=== PATIENT | male | born 1950 | race Caucasian/White ===

== ENCOUNTER 2017-10-28 12:43 | Observation (INO) | payer BC, OTHER ==
[2017-10-28] VITALS (10 sets, daily range): BP systolic 118–168; BP diastolic 57–74; PULSE 60–75; RESP 16–19; TEMP 98.1–98.5; O2SAT 95–100
[~2017-10-28 12:43] MED LIST: ACTO15TA6 PO; ATOR20TA42 PO; GLUCTAB PO; LISI5 PO; NORC7.5T PO; ST JTAB PO; TAMS5CAP PO
[2017-10-28] MEDS ORDERED: ASPIRIN 81 MG CHEW TAB PO ONE (13:15)
[2017-10-28] MEDS ORDERED: ASPI-516 CHEW (13:20)
[2017-10-28] MEDS ORDERED: LISI-519 PO (13:20)
[2017-10-28] MEDS ORDERED: LIPI20TA PO (13:20)
[2017-10-28] MEDS ORDERED: GABA600T PO (13:20)
[2017-10-28] MEDS ORDERED: METF1000 PO (13:20)
[2017-10-28] MEDS ORDERED: DAPA1TAB PO (13:20)
[2017-10-28] MEDS ORDERED: TAMS5CAP PO (13:20)
[2017-10-28 13:41] LABS: AUTOMATED NEUTROPHIL # 3.4 TH/MM3 (1.8-7.7); BASOPHIL # 0.1 TH/MM3 (0-0.2); BASOPHIL % 1.6 % (0.0-2.0); EOSINOPHIL # 0.2 TH/MM3 (0-0.4); EOSINOPHIL % 3.5 % (0.0-4.0); HEMATOCRIT 39.7 % (39.0-51.0); HEMOGLOBIN 13.9 GM/DL (13.0-17.0); LYMPH % 25.1 % (9.0-44.0); LYMPHOCYTE # 1.4 TH/MM3 (1.0-4.8); MEAN CELL VOLUME 92.1 FL (80.0-100.0); MEAN CORPUSCULAR HEMOGLOBIN 32.4 PG (27.0-34.0); MEAN CORPUSCULAR HGB CONC 35.1 % (32.0-36.0); MEAN PLATELET VOLUME 6.9 FL (7.0-11.0); MONO % 7.5 % (0.0-8.0); MONOCYTE # 0.4 TH/MM3 (0-0.9); NEUT % 62.3 % (16.0-70.0); PLATELET COUNT 318 TH/MM3 (150-450); RED BLOOD COUNT 4.31 MIL/MM3 (4.50-5.90); RED CELL DISTRIBUTION WIDTH 13.4 % (11.6-17.2); WHITE BLOOD COUNT 5.5 TH/MM3 (4.0-11.0)
[2017-10-28 13:51] LABS: PROTHROMBIN TIME - PATIENT 10.4 SEC (9.8-11.6)
[2017-10-28 14:01] LABS: BICARBONATE 29.2 MEQ/L (21.0-32.0); BLOOD UREA NITROGEN 13 MG/DL (7-18); CALCIUM 9.5 MG/DL (8.5-10.1); CHLORIDE 103 MEQ/L (98-107); CREATININE 0.82 MG/DL (0.60-1.30); GLOMERULAR FILTRATION RATE 94 ML/MIN (>89); GLUCOSE,RANDOM 133 MG/DL (74-106); MAGNESIUM 1.9 MG/DL (1.5-2.5); SODIUM (NA) 138 MEQ/L (136-145)
[2017-10-28 14:05] LABS: TROPONIN I LESS THAN 0.02 NG/ML (0.02-0.05)
--- NOTE | 2017-10-28 14:21 | RADRPT ---
EXAM DATE/TIME: 10/28/2017 13:36 [facility] COMPARISON: No previous studies available for comparison. INDICATIONS : Shortness of breath. MEDICAL HISTORY : None. SURGICAL HISTORY : None. ENCOUNTER: Initial ACUITY: 1 day PAIN SCORE: 5/10 LOCATION: chest FINDINGS: PA and lateral views of the chest demonstrate the lungs to be symmetrically aerated without evidence of mass, infiltrate or effusion. The cardiomediastinal contours are unremarkable. Degenerative murray es are noted throughout the thoracic spine. CONCLUSION: No acute cardiopulmonary disease. Degenerative changes throughout the thoracic spine. Alfredo Rodriguez MD on October 28, 2017 at 14:18 Board Certified Radiologist. This report was verified electronically.
--- NOTE | 2017-10-28 14:24 | PD ---
HPI Chief Complaint: Chest Pain Time Seen by Provider: 13:07 Travel History International Travel<30 days: No Contact w/Intl Traveler<30days: No Traveled to known affect area: No History of Present Illness HPI 66-year-old male with history of diabetes, sleep apnea, presents for evaluation of chest pain. Symptoms started 3 hours prior to examination when he was sitting at work. Symptoms started spontaneously. There are no obvious aggravating or alleviating factors. He describes it as a sharp/stabbing pain in the left side of his chest that radiates into the neck and left arm. Pain comes and goes in waves. He endorses associated dyspnea. He denies any nausea , vomiting, diaphoresis, headache, blurred vision, abdominal pain. He does report that he was recently hospitalized at an outside hospital for pneumonia, discharged 10 days ago, still has a slight residual cough but no fevers or chills. He reports very significant family history of coronary artery disease. Denies any personal history of aortic aneurysm. His last stress test was 10 years ago. His primary care physician is Dr. Chapa. He has no other complaints at this time. PFSH Past Medical History Cancer: No High Cholesterol: Yes Diabetes: Yes Patient Takes Glucophage: Yes (METFORMIN ) Gastrointestinal Disorders: No Genitourinary: No Hypertension: Yes Immune Disorder: No Musculoskeletal: No Neurologic: No Psychiatric: No Reproductive: No Sleep Apnea: Yes Past Surgical History Pacemaker: No Other Surgery: No Social History Alcohol Use: Yes (OCC) Tobacco Use: No Substance Use: No Allergies-Medications (Allergen,Severity, Reaction): Coded Allergies: No Known Allergies (Unverified , 07/10/13) Reported Meds & Prescriptions Reported Meds & Active Scripts Active Reported Gabapentin 600 Mg Tab 900 Mg PO BID Flomax (Tamsulosin HCl) 0.4 Mg Cap 0.4 Mg PO HS Farxiga (Dapagliflozin) 5 Mg Tab 5 Mg PO DAILY Metformin (Metformin HCl) 1,000 Mg Tab 1,000 Mg PO BIDPC Lisinopril 5 Mg Tab 5 Mg PO DAILY Lipitor (Atorvastatin Calcium) 20 Mg Tab 20 Mg PO HS Aspirin 81 Mg Chew 81 Mg CHEW DAILY Review of Systems Except as stated in HPI: all other systems reviewed are Neg Physical Exam Narrative GENERAL: Well-developed well-nourished male in no acute distress SKIN: Warm and dry. HEAD: Atraumatic. Normocephalic. EYES: Pupils equal and round. No scleral icterus. No injection or drainage. ENT: No nasal bleeding or discharge. Mucous membranes pink and moist. NECK: Trachea midline. No JVD. CARDIOVASCULAR: Regular rate and rhythm. No murmur appreciated. RESPIRATORY: No accessory muscle use. Clear to auscultation. Breath sounds equal bilaterally. GASTROINTESTINAL: Abdomen soft, non-tender, nondistended. Hepatic and splenic margins not palpable. MUSCULOSKELETAL: No obvious deformities. No clubbing. No cyanosis. No edema. NEUROLOGICAL: Awake and alert. No obvious cranial nerve deficits. Motor grossly within normal limits. Normal speech. PSYCHIATRIC: Appropriate mood and affect; insight and judgment normal. Data Data Last Documented VS Vital Signs Date Time Temp Pulse Resp B/P (MAP) Pulse Ox O2 Delivery O2 Flow Rate FiO2 10/28/17 16:22 67 18 119/60 (79) 98 Nasal Cannula 2.00 10/28/17 12:45 98.4 Orders Orders Electrocardiogram (10/28/17 13:03) Basic Metabolic Panel (Bmp) (10/28/17 13:03) Ckmb (Isoenzyme) Profile (10/28/17 13:03) Complete Blood Count With Diff (10/28/17 13:03) Magnesium (Mg) (10/28/17 13:03) Prothrombin Time / Inr (Pt) (10/28/17 13:03) Act Partial Throm Time (Ptt) (10/28/17 13:03) Troponin I (10/28/17 13:03) Aspirin Chew (Aspirin Chew) (10/28/17 13:15) Chest, Pa & Lat (10/28/17 13:03) Cta Thor Abd Aorta W Iv C W3d (10/28/17 14:12) Nitroglycerin Sl (Nitrostat Sl) (10/28/17 14:15) Iohexol 350 Inj (Omnipaque 350 Inj) (10/28/17 15:40) Ckmb (Isoenzyme) Profile (10/28/17 16:38) Ckmb (Isoenzyme) Profile (10/28/17 19:38) Troponin I (10/28/17 16:38) Troponin I (10/28/17 19:38) Electrocardiogram (10/28/17 16:38) Electrocardiogram (10/28/17 19:38) Admit Order (Ed Use Only) (10/28/17 16:48) Activity Bed Rest With Brp (10/28/17 16:48) Vital Signs (Adult) Q4H (10/28/17 16:48) Cardiac Rhythm .As Directed (10/28/17 16:48) Notify Dr: Other .PRN (10/28/17 16:48) Notify DrMaira Parameters (10/28/17 16:48) Resp Oxygen Nasal Cannula (10/28/17 ) Ckmb (Isoenzyme) Profile (10/28/17 16:48) Ckmb (Isoenzyme) Profile (10/28/17 19:48) ^ Obtain (10/28/17 16:48) Sodium Chloride 0.9% Flush (Ns Flush) (10/28/17 17:00) Sodium Chloride 0.9% Flush (Ns Flush) (10/28/17 21:00) Manager Math / Telemetry CHING.Q8H (10/28/17 16:48) Npo After Midnight W/ Po Meds (10/28/17 Dinner) Labs Laboratory Tests Test 10/28/17 13:20 White Blood Count 5.5 TH/MM3 Red Blood Count 4.31 MIL/MM3 Hemoglobin 13.9 GM/DL Hematocrit 39.7 % Mean Corpuscular Volume 92.1 FL Mean Corpuscular Hemoglobin 32.4 PG Mean Corpuscular Hemoglobin Concent 35.1 % Red Cell Distribution Width 13.4 % Platelet Count 318 TH/MM3 Mean Platelet Volume 6.9 FL Neutrophils (%) (Auto) 62.3 % Lymphocytes (%) (Auto) 25.1 % Monocytes (%) (Auto) 7.5 % Eosinophils (%) (Auto) 3.5 % Basophils (%) (Auto) 1.6 % Neutrophils # (Auto) 3.4 TH/MM3 Lymphocytes # (Auto) 1.4 TH/MM3 Monocytes # (Auto) 0.4 TH/MM3 Eosinophils # (Auto) 0.2 TH/MM3 Basophils # (Auto) 0.1 TH/MM3 CBC Comment DIFF FINAL Differential Comment Prothrombin Time 10.4 SEC Prothromb Time International Ratio 1.0 RATIO Activated Partial Thromboplast Time 30.2 SEC Blood Urea Nitrogen 13 MG/DL Creatinine 0.82 MG/DL Random Glucose 133 MG/DL Calcium Level 9.5 MG/DL Magnesium Level 1.9 MG/DL Sodium Level 138 MEQ/L Potassium Level 3.8 MEQ/L Chloride Level 103 MEQ/L Carbon Dioxide Level 29.2 MEQ/L Anion Gap 6 MEQ/L Estimat Glomerular Filtration Rate 94 ML/MIN Total Creatine Kinase 68 U/L Troponin I LESS THAN 0.02 NG/ML MDM Medical Decision Making Medical Screen Exam Complete: Yes Emergency Medical Condition: Yes Medical Record Reviewed: Yes Differential Diagnosis Acute coronary syndrome, aortic dissection, pulmonary embolism, spontaneous pneumothorax, pericarditis, myocarditis, pleurisy, costochondritis Narrative Course The patient was placed on ECG monitoring pulse oximetry. Twelve-lead EKG was obtained revealing sinus rhythm, LAD, no acute ST or T-wave changes. He took 81 mg baby aspirin this morning. He received 243 mg of aspirin are to my examination. Lab work, chest x-ray ordered in triage and are currently pending. A CTA has been ordered. CTA is negative. Initial labwork reassuring. The patient will be admitted to the chest pain center for serial cardiac enzymes and rule out purposes. He is agreeable. Procedures EKG Prior to Arrival: Yes Diagnosis Primary Impression: Chest pain Admitting Information Admitting Physician Requests: Observation Nathanael Comer Oct 28, 2017 14:24
[2017-10-28] MEDS: NITROGLYCERIN 0.4 MG SL 25 TABS/BTL SL SCH ×3 (14:25→14:39)
[2017-10-28] MEDS ORDERED: IOHEXOL 350 MG/ML 10 ML VIAL (for RAD DIAG) IVCONTRAST ONE (15:40)
--- NOTE | 2017-10-28 16:40 | RADRPT ---
EXAM DATE/TIME: 10/28/2017 15:40 [facility] COMPARISON: No previous studies available for comparison. INDICATIONS : Patient complains of acute onset stabbing chest pain, evaluate for aortic dissection. IV CONTRAST: 100 cc Omnipaque 350 (iohexol) IV RADIATION DOSE: 7.18 CTDIvol (mGy) MEDICAL HISTORY : Hypertension. Diabetes mellitus type 1. SURGICAL HISTORY : None. ENCOUNTER: Initial ACUITY: 1 day PAIN SCALE: 10/10 LOCATION: chest TECHNIQUE: Volumetric scanning was performed using a multi-row detector CT scanner. The data was post processed with a variety of visualization algorithms including full volume maximum intensity projection, multi -planar sliding thin slab reformation, curved planar reformation, and surface rendering techniques. Using automated exposure control and adjustment of the mA and/or kV according to patient size, radiat ion dose was kept as low as reasonably achievable to obtain optimal diagnostic quality images. DICOM format image data is available electronically for review and comparison. FINDINGS: LUNGS: There is no consolidation or pneumothorax. No concerning pulmonary nodule is visualized. No pleural fluid is present. MEDIASTINUM: No abnormally enlarged lymph nodes by CT criteria. No axillary or hilar abnormalities are identified. ABDOMEN: A small hiatal hernia is present. The liver and spleen are free of focal defects. The gallbladder and pancreas demonstrate no abnormality. The adrenal glands are normal. The kidneys demonstrate no evide nce of solid renal mass or hydronephrosis. No free fluid or abdominal masses are identified. No para- aortic adenopathy is seen. A retroaortic left renal vein is incidentally noted. There is a fat contai kelly periumbilical hernia. PELVIS: No evidence of free fluid or pelvic mass. No abnormally enlarged inguinal or retroperitoneal lymph no quinten are present. The bladder is unremarkable. A fat containing left inguinal hernia is present. There is prominent diverticular involvement of the pelvic colon THORACIC AORTA: The thoracic aortic root is normal with normal branching of the great vessels. There is no evidence of aneurysm or dissection. ABDOMINAL AORTA: The aorta is normal in caliber without aneurysm or dissection. The renal arteries are patent bilater ally. The proximal celiac and superior mesenteric arteries are patent and normal in diameter. PELVIC VESSELS: The internal iliac and external iliac vessels are patent without aneurysm or stenosis. CONCLUSION: No acute vascular findings. Fat containing periumbilical and left inguinal hernias. Small hiatal hernia and colonic diverticulosis. Jaydon Escobar MD on October 28, 2017 at 16:28 Board Certified Radiologist. This report was verified electronically.
[2017-10-28] MEDS ORDERED: DEXTROSE 50% IN WATER 50 ML VIAL(D50) IV PUSH PRN (17:00)
[2017-10-28] MEDS: INSULIN ASPART SUPPLEMENTAL SCALE SQ SCH ×2 (17:00→22:32)
[2017-10-28] MEDS ORDERED: GLUCAGON 1 MG/ML VIAL OTHER PRN (17:00)
[2017-10-28] MEDS ORDERED: SODIUM CHLORIDE 0.9% FLUSH 10 ML FLUSH IV FLUSH PRN (17:00)
[2017-10-28 17:45] LABS: TROPONIN I LESS THAN 0.02 NG/ML (0.02-0.05)
[2017-10-28] MEDS ORDERED: guaiFENesin E.R. 600 MG TAB PO PRN (19:00)
[2017-10-28] MEDS: SODIUM CHLORIDE 0.9% FLUSH 10 ML FLUSH IV FLUSH SCH (20:28)
--- NOTE | 2017-10-28 21:49 | EKG ---
Date Performed: 10/28/2017 Time Performed: 13:13:45 PTAGE: 66 years EKG: Sinus rhythm MARKED LEFT AXIS DEVIATION PATTERN CONSISTENT WITH PULMONARY DISEASE ABNORMAL ECG PREVIOUS TRACING : 07/10/2013 09.33 DOCTOR: Gabriella Andrade Interpretating Date/Time 10/28/2017 21:48:10
[2017-10-29 00:02] VITALS: PULSE 63
[2017-10-29 00:25] VITALS: BP 122/74; PULSE 74; RESP 18; TEMP 98.5; O2SAT 97
[2017-10-29 03:52] VITALS: BP 129/72; PULSE 62; RESP 18; TEMP 98.7; O2SAT 95
--- NOTE | 2017-10-29 07:40 | EKG ---
Date Performed: 10/28/2017 Time Performed: 16:44:41 PTAGE: 66 years EKG: SINUS BRADYCARDIA INFERIOR MYOCARDIAL INFARCTION ABNORMAL ECG Since PREVIOUS TRACING , no significant change noted PREVIOUS TRACIN10/28/2017 13.13 DOCTOR: Trina Pérez Interpretating Date/Time 10/29/2017 07:38:24
[2017-10-29 07:55] VITALS: BP 156/83; PULSE 68; RESP 18; TEMP 97.7; O2SAT 94
[2017-10-29 08:00] VITALS: PULSE 64
[2017-10-29] MEDS: INSULIN ASPART SUPPLEMENTAL SCALE SQ SCH ×2 (08:00→12:00)
--- NOTE | 2017-10-29 08:28 | HHI.HP ---
[facility] Primary Care Physician Bora Chapa M.D. Chief Complaint Chest pain History of Present Illness This is a 66-year-old male with history of diabetes and sleep apnea that presents to ED with a complaint of chest discomfort. It began several hours prior to his arrival in the ED. It began while he was at work. Symptoms last for several hours. States the discomfort began left side his neck and radiated down his left arm with some tingling sensations in the arm. Within about 5 minutes the discomfort that radiated up into the left upper chest. He had no associated shortness breath, nausea, or diaphoresis. Denies weakness in extremities. Denies headache or visual changes. States he had pneumonia and finished antibiotics 2 weeks ago. Still has a cough but is been nonproductive. No recent fevers. Denies history of CAD but states that his father in his early 40s of a myocardial infarction. He is a lifetime nonsmoker. Denies hypertension or hyperlipidemia but states he takes lisinopril and statin secondary to being diagnosed with diabetes. Review of Systems General: Patient denies fevers, chills recent, and recent travel HEENT: Patient denies headache, sore throat, difficulty swallowing. Cardiovascular: Has the chest discomfort as mentioned above. Denies sensation of heart beating rapidly or irregularly. No syncope. Denies diaphoresis. Respiratory: Denies shortness of breath or inspirational chest discomfort. Nonproductive cough. Denies wheezing or hemoptysis. GI: Patient denies nausea, vomiting, diarrhea, abdominal pain, bloody stools. Musculoskeletal: Patient denies joint pain or edema. Denies calf pain or edema. Neurovascular: Patient denies numbness, tingling, weakness in extremities. Denies headache. Endocrine: Denies polyuria and polydipsia. Hematologic: Denies easy bruising. Skin: Denies rash or itching. Past Family Social History Allergies: Coded Allergies: No Known Allergies (Unverified , 07/10/13) Past Medical History Diabetes. Recently diagnosed pneumonia and finished antibiotics. Denies hypertension, hyperlipidemia, and CAD. Past Surgical History Noncontributory. Reported Medications Reported Meds & Active Scripts Active Reported Gabapentin 600 Mg Tab 900 Mg PO BID Flomax (Tamsulosin HCl) 0.4 Mg Cap 0.4 Mg PO HS Farxiga (Dapagliflozin) 5 Mg Tab 5 Mg PO DAILY Metformin (Metformin HCl) 1,000 Mg Tab 1,000 Mg PO BIDPC Lisinopril 5 Mg Tab 5 Mg PO DAILY Lipitor (Atorvastatin Calcium) 20 Mg Tab 20 Mg PO HS Aspirin 81 Mg Chew 81 Mg CHEW DAILY Active Ordered Medications Current Medications Medications (Trade) Dose Ordered Sig/Cassidy Route Start Time Stop Time Status Last Admin (NS Flush) 2 ml UNSCH PRN IV FLUSH 10/28/17 17:00 (NS Flush) 2 ml BID IV FLUSH 10/28/17 21:00 10/28/17 20:28 (NovoLOG SUPPLEMENTAL SCALE) 1 ACHS SLIDING SCALE SQ 10/28/17 17:00 10/28/17 22:32 (D50w (Vial) Inj) 50 ml UNSCH PRN IV PUSH 10/28/17 17:00 (Glucagon Inj) 1 mg UNSCH PRN OTHER 10/28/17 17:00 (Mucinex Er) 600 mg BID PRN PO 10/28/17 19:00 10/28/17 20:32 (Lipitor) 20 mg HS PO 10/29/17 21:00 (Neurontin) 900 mg BID PO 10/29/17 09:00 (Prinivil) 5 mg DAILY PO 10/29/17 09:00 (Flomax) 0.4 mg HS PO 10/29/17 21:00 (Aspirin) 325 mg DAILY PO 10/29/17 09:00 Family History States his father in his early 40s of a myocardial infarction. Social History Nonsmoker. Occasional alcohol. Denies illicit drugs. Physical Exam Vital Signs Vital Signs Date Time Temp Pulse Resp B/P (MAP) Pulse Ox O2 Delivery O2 Flow Rate FiO2 10/29/17 07:55 97.7 68 18 156/83 (107) 94 10/29/17 03:56 21 10/29/17 03:52 98.7 62 18 129/72 (91) 95 10/29/17 00:25 98.5 74 18 122/74 (90) 97 10/29/17 00:02 63 10/28/17 20:14 98.5 67 18 124/71 (88) 99 10/28/17 20:01 75 10/28/17 18:31 98.1 67 18 122/68 (86) 100 10/28/17 17:40 60 17 132/67 (88) 99 Nasal Cannula 2.00 10/28/17 16:22 67 18 119/60 (79) 98 Nasal Cannula 2.00 10/28/17 14:40 74 16 121/57 (78) 98 Room Air 10/28/17 14:31 72 17 118/65 (82) 97 Room Air 10/28/17 14:21 60 152/72 (98) 10/28/17 14:19 60 133/71 (91) 10/28/17 13:24 96 Nasal Cannula 2.00 10/28/17 12:45 98.4 64 19 168/74 (105) 95 Physical Exam GENERAL: This is a well-nourished, well-developed patient, in no apparent distress. Patient speaks in clear complete sentences. Patient is pleasant. HEENT: Head is atraumatic and normocephalic. Neck is supple without lymphadenopathy and trachea is midline. No JVD or carotid bruits. CARDIOVASCULAR: Regular rate and rhythm without murmurs, gallops, or rubs. RESPIRATORY: Clear to auscultation. Breath sounds equal bilaterally. No wheezes , rales, or rhonchi. Chest wall is nontender. No use of accessory muscles. GASTROINTESTINAL: Abdomen is nontender, nondistended. Abdomen soft. No obvious pulsatile mass or bruit. No CVA tenderness. Strong femoral pulses bilaterally. Normal bowel sounds in all quadrants. MUSCULOSKELETAL: Patient is moving upper and lower extremities freely. No calf tenderness or edema, no Homans sign. Strong pulses in upper and lower extremities. NEUROLOGICAL: Patient is alert and oriented. Cranial nerves 2-12 are grossly intact. No focal deficits and speech is clear. SKIN: No rash and turgor is normal. Laboratory Laboratory Tests Test 10/28/17 13:20 10/28/17 16:52 10/28/17 20:15 White Blood Count 5.5 Red Blood Count 4.31 Hemoglobin 13.9 Hematocrit 39.7 Mean Corpuscular Volume 92.1 Mean Corpuscular Hemoglobin 32.4 Mean Corpuscular Hemoglobin Concent 35.1 Red Cell Distribution Width 13.4 Platelet Count 318 Mean Platelet Volume 6.9 Neutrophils (%) (Auto) 62.3 Lymphocytes (%) (Auto) 25.1 Monocytes (%) (Auto) 7.5 Eosinophils (%) (Auto) 3.5 Basophils (%) (Auto) 1.6 Neutrophils # (Auto) 3.4 Lymphocytes # (Auto) 1.4 Monocytes # (Auto) 0.4 Eosinophils # (Auto) 0.2 Basophils # (Auto) 0.1 CBC Comment DIFF FINAL Differential Comment Prothrombin Time 10.4 Prothromb Time International Ratio 1.0 Activated Partial Thromboplast Time 30.2 Blood Urea Nitrogen 13 Creatinine 0.82 Random Glucose 133 Calcium Level 9.5 Magnesium Level 1.9 Sodium Level 138 Potassium Level 3.8 Chloride Level 103 Carbon Dioxide Level 29.2 Anion Gap 6 Estimat Glomerular Filtration Rate 94 Total Creatine Kinase 68 51 78 Troponin I LESS THAN 0.02 LESS THAN 0.02 Result Diagram: 10/28/17 1320 10/28/17 1320 Imaging Last 48 hours Impressions Aorta CTA 10/28/17 1412 Signed Impressions: Service Date/Time: Saturday, October 28, 2017 15:40 - CONCLUSION: No acute vascular findings. Fat containing periumbilical and left inguinal hernias. Small hiatal hernia and colonic diverticulosis. Jaydon Escobar MD Chest X-Ray 10/28/17 1303 Signed Impressions: Service Date/Time: Saturday, October 28, 2017 13:36 - CONCLUSION: No acute cardiopulmonary disease. Degenerative changes throughout the thoracic spine. Alfredo Rodriguez MD Course EKGs are sinus rhythm without significant ST segment depressions or elevations. Caprini VTE Risk Assessment Caprini VTE Risk Assessment: Mod/High Risk (score >= 2) Caprini Risk Assessment Model Point Value = 1 Point Value = 2 Point Value = 3 Point Value = 5 Age 41-60 Minor surgery BMI > 25 kg/m2 Swollen legs Varicose veins or History of unexplained or recurrent spontaneous Oral contraceptives or hormone replacement Sepsis (< 1 month) Serious lung disease, including pneumonia (< 1 month) Abnormal pulmonary function Acute myocardial infarction Congestive heart failure (< 1 month) History of inflammatory bowel disease Medical patient at bed rest Age 61-74 Arthroscopic surgery Major open surgery (> 45 min) Laparoscopic surgery (> 45 min) Malignancy Confined to bed (> 72 hours) Immobilizing plaster cast Central venous access Age >= 75 History of VTE Family history of VTE Factor V Leiden Prothrombin [id number] Lupus anticoagulant Anticardiolipin antibodies Elevated serum homocysteine Heparin-induced thrombocytopenia Other congenital or acquired thrombophilia Stroke (< 1 month) Elective arthroplasty Hip, pelvis, or leg fracture Acute spinal cord injury (< 1 month) Prophylaxis Regimen Total Risk Factor Score Risk Level Prophylaxis Regimen 0-1 Low Early ambulation 2 Moderate Order ONE of the following: *Sequential Compression Device (SCD) *Heparin 5000 units SQ BID 3-4 Higher Order ONE of the following medications: *Heparin 5000 units SQ TID *Enoxaparin/Lovenox 40 mg SQ daily (WT < 150 kg, CrCl > 30 mL/min) *Enoxaparin/Lovenox 30 mg SQ daily (WT < 150 kg, CrCl > 10-29 mL/min) *Enoxaparin/Lovenox 30 mg SQ BID (WT < 150 kg, CrCl > 30 mL/min) AND/OR *Sequential Compression Device (SCD) 5 or more Highest Order ONE of the following medications: *Heparin 5000 units SQ TID (Preferred with Epidurals) *Enoxaparin/Lovenox 40 mg SQ daily (WT < 150 kg, CrCl > 30 mL/min) *Enoxaparin/Lovenox 30 mg SQ daily (WT < 150 kg, CrCl > 10-29 mL/min) *Enoxaparin/Lovenox 30 mg SQ BID (WT < 150 kg, CrCl > 30 mL/min) AND *Sequential Compression Device (SCD) Assessment and Plan Assessment and Plan * Chest pain: Patient has had serial cardiac enzymes and EKGs for ruling out purposes. He was seen by Dr. Pérez cardiology in the chest pain center. He has risks factors for CAD with father passing away in his 40s of a myocardial infarction and he also is diabetic. He will undergo a nuclear ETT and if nonischemic will be discharged home with instructions to follow-up with PCP. * Diabetes: Patient will be on sliding scale insulin coverage while in the chest pain center. He will need to hold his metformin for 2 days as he had a CT with contrast. He is on an SISSY inhibitor and statin prophylactically as he is diabetic. Continue his medications. Patient is stable at this time. He is agreeable to this plan. Maico Benavides Oct 29, 2017 08:28
[2017-10-29] MEDS: SODIUM CHLORIDE 0.9% FLUSH 10 ML FLUSH IV FLUSH SCH (09:00)
[2017-10-29] MEDS ORDERED: ASPIRIN 325 MG TAB PO SCH (09:00)
[2017-10-29] MEDS ORDERED: GABAPENTIN 300 MG CAP PO SCH (09:00)
[2017-10-29] MEDS ORDERED: LISINOPRIL 5 MG TAB PO SCH (09:00)
--- NOTE | 2017-10-29 12:50 | RADRPT ---
EXAM DATE/TIME: 10/29/2017 10:39 [facility] COMPARISON: No previous studies available for comparison. INDICATIONS : Substernal chest pain radiating to left arm. Angina DOSE: 35.0 mCi Tc99m Myoview at stress 11.0 mCi Tc99m Myoview at rest REST HEART RATE: 75 BPM TARGET HEART RATE: 132 BPM MAX HEART RATE: 135 BPM REST BLOOD PRESSURE: 124/70 mmHg MAX BLOOD PRESSURE: 144/80 mmHg EJECTION FRACTION: > 70% MEDICAL HISTORY : Diabetes mellitus type 2. SURGICAL HISTORY : None. ENCOUNTER: Initial ACUITY: 1 day PAIN SCALE: 4/10 LOCATION: Substernal chest TECHNIQUE: The patient underwent upright treadmill exercise in the chest pain center. Continuous ECG tracing wa s monitored during stress. Gated SPECT imaging was performed after stress, and conventional SPECT im aging was performed at rest. The examination was performed on a SPECT/CT scanner, both attenuation-c orrected and non-corrected datasets were reviewed. FINDINGS: DISTRIBUTION: The maximum perfused segment at stress is in the anteroseptal wall. There is prominent attenuation on the raw data images caused by diaphragm. PERFUSION STUDY: The pattern of perfusion at stress is within normal limits, with regional variations of perfusion les s than 30%. The pattern of perfusion at stress and rest is unchanged without evidence of redistributi on. The summed stress score is zero.. GATED STUDY: There is intact wall motion and thickening without hypokinetic or dyskinetic segments. CONCLUSION: 1. No evidence of stress-induced ischemia. 2. Intact wall motion with ejection fraction greater than 70%. RISK CATEGORY: Low (<1% Annual Mortality Rate) Ricardo Mckeon MD on October 29, 2017 at 12:45 Board Certified Radiologist. This report was verified electronically.
--- NOTE | 2017-10-29 12:52 | TR ---
Date Performed: 10/29/2017 Time Performed: 11:10:56 DOCTOR: Trina Pérez DRUG LIST: CLINICAL HISTORY: CHEST PAIN REASON FOR TEST: REASON FOR ENDING: OBSERVATION: CONCLUSION: NUCLEAR ETT TOBY PROTOCOL. NO CP. PATIENT WAS SOB.Maximum WQ=101 Max HR Achieved=8 7.0% Maximum NV=129/68 Total Exercise Time=8:41 COMMENTS:
--- NOTE | 2017-10-29 12:56 | HHI.DCPOC ---
Discharge Care Plan Diagnosis: (1) DM (diabetes mellitus) (2) Chest pain Goals to Promote Your Health DO NOT TAKE METFORMIN FOR TWO DAYS. * To prevent worsening of your condition and complications * To maintain your health at the optimal level Directions to Meet Your Goals Take your medications as prescribed Follow your dietary instruction Follow activity as directed Keep your appointments as scheduled Take your immunizations and boosters as scheduled If your symptoms worsen call your PCP, if no PCP go to Urgent Care Center or Emergency Room Smoking is Dangerous to Your Health. Avoid second hand smoke Call the 24-hour hour crisis hotline for domestic abuse at Maico Benavides Oct 29, 2017 12:56
[2017-10-29 13:05] VITALS: BP 135/76; PULSE 75; RESP 18; TEMP 98; O2SAT 95
[2017-10-29] MEDS ORDERED: TAMSULOSIN HCL 0.4 MG CAP PO SCH (21:00)
[2017-10-29] MEDS ORDERED: ATORVASTATIN 20 MG TAB PO SCH (21:00)
== END 2017-10-29 16:17 | disposition home or self-care (01) ==
LOC: NEPE 12:43 → NEDA 16:50 → NEPFCDU 17:49
PROVIDERS: ADMIT Internal Medicine Cardiovascular Disease; ATTEND Internal Medicine Cardiovascular Disease
DX: R07.89 Other chest pain (principal); E11.9 Type 2 diabetes mellitus without complications; Z82.49 Family history of ischemic heart disease and other diseases of the circulatory system; G47.30 Sleep apnea, unspecified; M54.2 Cervicalgia; M79.602 Pain in left arm; R20.2 Paresthesia of skin; R05 Cough; R00.1 Bradycardia, unspecified; R94.31 Abnormal electrocardiogram [ECG] [EKG]; R07.2 Precordial pain; I20.9 Angina pectoris, unspecified; R06.02 Shortness of breath; R06.00 Dyspnea, unspecified; I10 Essential (primary) hypertension; E78.00 Pure hypercholesterolemia, unspecified; K40.90 Unilateral inguinal hernia, without obstruction or gangrene, not specified as recurrent; K44.9 Diaphragmatic hernia without obstruction or gangrene; K57.30 Diverticulosis of large intestine without perforation or abscess without bleeding; K42.9 Umbilical hernia without obstruction or gangrene; Z79.899 Other long term (current) drug therapy; Z79.82 Long term (current) use of aspirin; Z79.84 Long term (current) use of oral hypoglycemic drugs
CPT/HCPCS: 71046; 71275; 74174; 78452; 80048; 82550; 83735; 84484; 85025; 85610; 85730; 93005; 93017; 96372; 99285; A9502; G0378; J1815; Q9967